=== PATIENT | female | born 1985 | race African-American/Black ===

== ENCOUNTER 2020-05-15 19:02 | Observation (INO) | payer MEDICAID ==
[~2020-05-15] VITALS: Ht 165.1 cm; Wt 91.6 kg
[~2020-05-15 19:02] MED LIST: PRE-NATAL VITAMINS
== END 2020-05-15 21:26 | disposition home or self-care (01) ==
LOC: INTOOBSV 19:02 → LDRP 19:02
PROVIDERS: ADMIT Obstetrics & Gynecology; ATTEND Obstetrics & Gynecology
DX: O62.9 Abnormality of forces of labor, unspecified (principal); Z3A.26 26 weeks gestation of pregnancy
CPT/HCPCS: 59025; 76815; 81002; G0378

== ENCOUNTER 2020-08-16 08:50 | Observation (INO) | payer MEDICAID ==
[~2020-08-16] VITALS: Ht 165.1 cm; Wt 97.5 kg
== END 2020-08-16 11:51 | disposition home or self-care (01) ==
LOC: LDRP 08:50
PROVIDERS: ADMIT Specialist; ATTEND Specialist
DX: O48.0 Post-term pregnancy (principal); Z3A.40 40 weeks gestation of pregnancy
CPT/HCPCS: 59025; 76818; 81002; G0378

== ENCOUNTER 2020-08-17 21:48 | Inpatient (IN) | payer MEDICAID ==
[~2020-08-17] VITALS: Ht 165.1 cm; Wt 97.5 kg
[2020-08-18] VITALS (9 sets, daily range): BP systolic 106–131; BP diastolic 51–78
[2020-08-18] MEDS ORDERED: WITCH HAZEL-GLYCERIN PAD TOP PRN (04:00)
[2020-08-18] MEDS ORDERED: DERMOPLAST 60ML BOTTLE TOP PRN (04:00)
[2020-08-18] MEDS ORDERED: LIDOCAINE 2%HCL (LOCAL ANESTH.) INJ 20ML MDV IJ ONE ×2 (04:00→11:00)
[2020-08-18] MEDS ORDERED: PHISODERM TOP SOLN 240ML BTL TOP PRN (04:00)
[2020-08-18 05:04] LABS: Basophils # (auto) 0 10 ^3/uL (0-0.2); Basophils % (auto) 0.1 % (0.0-2.0); Eosinophils # (auto) 0.1 10 ^3/uL (0-0.8); Eosinophils % (auto) 0.7 % (0.0-7.0); Hematocrit 37.9 % (36.0-46.0); Hemoglobin 13.1 g/dL (12.2-16.2); Lymphocytes # (auto) 1.5 10 ^3/uL (0.4-5.4); Lymphocytes % (auto) 14.4 % (10.0-50.0); Mean Corpuscular Hemoglobin 32.9 pg (28.0-32.0); Mean Corpuscular Hgb Conc. 34.4 g/dL (32.0-36.0); Mean Corpuscular Volume 95.8 fL (80.0-100.0); Monocytes # (auto) 1.1 10 ^3/uL (0-1.3); Monocytes % (auto) 10.4 % (0.0-12.0); Neutrophils # (auto) 7.9 10 ^3/uL (1.6-8.6); Neutrophils % (auto) 74.4 % (37.0-80.0); Nucleated Red Blood Cells % 0.2 %; Platelet Count (auto) 164 10^3/uL (140-450); Red Blood Cells 3.96 10^6/uL (4.0-5.20); Red Cell Distribution Width 14.5 % (11.8-14.3); White Blood Cell 10.6 10^3/uL (4.4-10.8)
[2020-08-18 05:08] LABS: Albumin 2.6 g/dL (3.4-5.0); Calcium 8.5 mg/dL (8.5-10.1); Potassium 3.7 mmol/L (3.5-5.1)
[2020-08-18 05:11] LABS: BUN/Creatinine Ratio 8.3; Bilirubin, Total 0.3 mg/dL (0.2-1.0); Total Protein 6.4 g/dL (6.4-8.2)
[2020-08-18 05:37] LABS: INR 0.99 (0.9-1.15); Partial Thromboplastin Time 25.5 sec (23.0-31.2)
[2020-08-18] MEDS ORDERED: miSOPROStol 50 MCG per PRE-CUT 1/2 TAB PO PRN (06:00)
[2020-08-18] MEDS ORDERED: CARBOPROST TROMETHAMINE 250 MCG/1ML VIAL IM ONE ×2 (07:30→16:54)
[2020-08-18] MEDS ORDERED: METHYLERGONOVINE MALEATE 0.2 MG/ML AMP IM ONE (07:30)
[2020-08-18] MEDS ORDERED: LACT. RINGERS/OXYTOCIN 20UNITS 1,000 ML IV ONE ×2 (07:30→17:15)
[2020-08-18 07:40] LABS: Urine Bacteria NONE SEEN /hpf (None Seen); Urine Blood Negative /uL (Negative); Urine Mucus FEW (None Seen); Urine Specific Gravity 1.012 (1.001-1.035); Urine WBC 5 /hpf (0 - 5)
[2020-08-18] MEDS ORDERED: LACT. RINGERS/OXYTOCIN 20UNITS 1,000 ML IV SCH (08:30)
[2020-08-18] MEDS ORDERED: fentaNYL CITRATE 100 MCG/2 ML VL IV ONE (09:15)
[2020-08-18] MEDS ORDERED: ePHEDrine SULFATE 50 MG/ML AMP IV ONE ×2 (09:15→11:00)
[2020-08-18] MEDS ORDERED: LIDOCAINE HCL 2 %PF INJ 10ML AMP IJ ONE ×2 (09:15→15:50)
[2020-08-18] MEDS ORDERED: ROPIVACAINE HCL 200 ML EPI SCH ×2 (09:15→11:00)
[2020-08-18] MEDS ORDERED: NALOXONE HCL 0.4 MG/ML VIAL IV ONE ×2 (09:15→11:00)
[2020-08-18] MEDS: LACTATED RINGER'S 1,000 ML IV SCH ×2 (10:13→19:21)
[2020-08-18] MEDS ORDERED: LACTATED RINGER'S 500 ML IV ONE (11:00)
[2020-08-18] MEDS ORDERED: LIDOCAINE W/ EPINEPHRINE 1 % INJ 30ML IJ ONE (11:00)
[2020-08-18] MEDS ORDERED: SODIUM CHLORIDE 0.9% 500 ML IV PRN (11:00)
[2020-08-18] MEDS ORDERED: ceFAZolin 1GM/50ML 50 ML IV ONE ×2 (15:30)
[2020-08-18] MEDS ORDERED: fentaNYL CITRATE 100 MCG/2 ML VL ONE (15:47)
[2020-08-18] MEDS ORDERED: MORPHINE SULF(PF) 0.5MG/ML 10ML VIAL ONE (15:47)
[2020-08-18] MEDS ORDERED: MIDAZOLAM HCL 1MG/1ML-2 ML VIAL ONE (15:48)
[2020-08-18] MEDS ORDERED: oxyTOCIN 10 UNIT/ML 10ML VIAL ONE (15:50)
[2020-08-18 16:49] LABS: Alcohol, Urine < 3.0 mg/dL (0-10); Amphetamine Screen, Urine NEGATIVE (NEGATIVE); Barbiturate Scree,Urine NEGATIVE (NEGATIVE); Benzodiazephine Screen, Urine NEGATIVE (NEGATIVE); Cannabinoid Screen, Urine NEGATIVE (NEGATIVE); Cocaine Screen, Urine NEGATIVE (NEGATIVE); Opiate Scree,Urine NEGATIVE (NEGATIVE); Phencyclidine Screen, Urine NEGATIVE (NEGATIVE)
[2020-08-18] MEDS ORDERED: LABETALOL HCL 5 MG/ML 4ML SYRINGE IV PRN (17:15)
[2020-08-18] MEDS ORDERED: MORPHINE SULFATE 4 MG/ML SYR/VIAL IV PRN (17:15)
[2020-08-18] MEDS ORDERED: GUM (CHEWING) 1 GUM CHEW CHEW ONE (17:15)
[2020-08-18] MEDS ORDERED: HYDROmorphone HCL 2 MG/ML VL IV PRN (17:15)
[2020-08-18] MEDS ORDERED: NALBUPHINE HCL 10 MG/1ml INJECTION SUBCUT ONE (17:15)
[2020-08-18] MEDS ORDERED: NALOXONE HCL 0.4 MG/ML VIAL IV PRN (17:15)
[2020-08-18] MEDS ORDERED: diphenhdrAMINE HCL 50 MG/1 ML VL IV PRN (17:15)
[2020-08-18] MEDS ORDERED: MIDAZOLAM HCL 1MG/1ML-2 ML VIAL IV PRN (17:15)
[2020-08-18] MEDS ORDERED: ONDANSETRON HCL 4 MG/2 ML VIAL IV PRN ×2 (17:15)
[2020-08-18] MEDS ORDERED: ePHEDrine SULFATE 50 MG/ML AMP IV PRN (17:15)
[2020-08-18] MEDS ORDERED: DexAMETHasone SOD PHOS 10MG/1ML VIAL INJ IV PRN (17:15)
[2020-08-18] MEDS ORDERED: ONDANSETRON HCL 4 MG/2 ML VIAL ONE (17:40)
[2020-08-18] MEDS ORDERED: HYDROmorphone HCL 2 MG/ML VL ONE (17:42)
[2020-08-18] MEDS ORDERED: ACETAMINOPHEN IV 1000 MG/100ML (10MG/ML) IV ONE (19:15)
[2020-08-18] MEDS: KETOROLAC TROMETH 30 MG/ML 1ML VIAL IV PRN (19:20)
[2020-08-18] MEDS: ceFAZolin 1GM/50ML 50 ML IV SCH (19:21)
[2020-08-18] MEDS ORDERED: RHO (D) IMMUNE GLOBULIN 300 MCG INJ IM ONE (20:15)
[2020-08-18 22:25] LABS: Basophils # (auto) 0 10 ^3/uL (0-0.2); Basophils % (auto) 0.2 % (0.0-2.0); Eosinophils # (auto) 0 10 ^3/uL (0-0.8); Eosinophils % (auto) 0.1 % (0.0-7.0); Hematocrit 32.8 % (36.0-46.0); Hemoglobin 11.1 g/dL (12.2-16.2); Lymphocytes # (auto) 1.1 10 ^3/uL (0.4-5.4); Lymphocytes % (auto) 6.1 % (10.0-50.0); Mean Corpuscular Hemoglobin 32.7 pg (28.0-32.0); Mean Corpuscular Hgb Conc. 33.8 g/dL (32.0-36.0); Mean Corpuscular Volume 96.9 fL (80.0-100.0); Monocytes # (auto) 1.1 10 ^3/uL (0-1.3); Monocytes % (auto) 6.3 % (0.0-12.0); Neutrophils # (auto) 15.1 10 ^3/uL (1.6-8.6); Neutrophils % (auto) 87.3 % (37.0-80.0); Platelet Count (auto) 148 10^3/uL (140-450); Red Blood Cells 3.39 10^6/uL (4.0-5.20); Red Cell Distribution Width 14.4 % (11.8-14.3); White Blood Cell 17.3 10^3/uL (4.4-10.8)
[2020-08-19] VITALS (11 sets, daily range): BP systolic 94–124; BP diastolic 46–63
[2020-08-19] MEDS: LACTATED RINGER'S 1,000 ML IV SCH (03:24)
[2020-08-19] MEDS: ceFAZolin 1GM/50ML 50 ML IV SCH ×2 (03:28→11:23)
[2020-08-19] MEDS: KETOROLAC TROMETH 30 MG/ML 1ML VIAL IV PRN ×2 (04:04→11:23)
[2020-08-19] MEDS ORDERED: LACTATED RINGER'S 1,000 ML IV SCH (06:45)
[2020-08-19] MEDS: FERROUS SULFATE 325 MG TAB PO SCH ×2 (10:00→22:19)
[2020-08-19] MEDS: DOCUSATE SOD 100 MG CAP PO SCH ×2 (10:00→22:19)
[2020-08-19 11:19] LABS: Basophils # (auto) 0 10 ^3/uL (0-0.2); Basophils % (auto) 0.2 % (0.0-2.0); Eosinophils # (auto) 0 10 ^3/uL (0-0.8); Lymphocytes # (auto) 0.6 10 ^3/uL (0.4-5.4); Mean Corpuscular Volume 96.6 fL (80.0-100.0); Platelet Count (auto) 138 10^3/uL (140-450)
[2020-08-19 11:21] LABS: Eosinophils % (auto) 0.2 % (0.0-7.0); Hematocrit 29.6 % (36.0-46.0); Hemoglobin 10.2 g/dL (12.2-16.2); Mean Corpuscular Hemoglobin 33.2 pg (28.0-32.0); Mean Corpuscular Hgb Conc. 34.3 g/dL (32.0-36.0); Monocytes # (auto) 0.7 10 ^3/uL (0-1.3); Monocytes % (auto) 4.6 % (0.0-12.0); Neutrophils # (auto) 14.4 10 ^3/uL (1.6-8.6); Red Blood Cells 3.07 10^6/uL (4.0-5.20); Red Cell Distribution Width 14.5 % (11.8-14.3); White Blood Cell 15.9 10^3/uL (4.4-10.8)
[2020-08-19] MEDS: SIMETHICONE 80 MG CHEWABLE TABLET PO SCH ×2 (12:00→20:14)
[2020-08-19] MEDS ORDERED: HYDROcodone-ACET 5/325MG TAB PO PRN (14:45)
[2020-08-19] MEDS: HYDROcodone-ACET 5/325MG TAB PO PRN ×2 (15:20→23:55)
[2020-08-19] MEDS: IBUPROFEN 800 MG TAB PO PRN (20:14)
[2020-08-20] MEDS: SIMETHICONE 80 MG CHEWABLE TABLET PO SCH ×5 (00:42→22:00)
[2020-08-20 03:27] VITALS: BP 110/56
[2020-08-20] MEDS: HYDROcodone-ACET 5/325MG TAB PO PRN ×3 (04:00→20:58)
[2020-08-20 04:06] LABS: RPR Non Reactive (Non Reactive)
[2020-08-20 07:30] VITALS: BP 104/52
[2020-08-20] MEDS: IBUPROFEN 800 MG TAB PO PRN ×2 (08:01→15:42)
[2020-08-20] MEDS: FERROUS SULFATE 325 MG TAB PO SCH ×2 (10:21→21:57)
[2020-08-20] MEDS: DOCUSATE SOD 100 MG CAP PO SCH ×2 (10:21→21:57)
[2020-08-20 11:30] VITALS: BP 107/60
[2020-08-20 15:30] VITALS: BP 106/55
[2020-08-20 19:10] VITALS: BP 110/63
[2020-08-20] MEDS ORDERED: BISACODYL 10 MG RECT SUPP PR ONE (22:00)
[2020-08-20 22:49] VITALS: BP 128/70
[2020-08-21] MEDS: IBUPROFEN 800 MG TAB PO PRN ×2 (00:53→10:23)
[2020-08-21] MEDS: HYDROcodone-ACET 5/325MG TAB PO PRN ×2 (02:50→07:15)
[2020-08-21 02:59] VITALS: BP 106/67
[2020-08-21] MEDS: SIMETHICONE 80 MG CHEWABLE TABLET PO SCH (05:26)
[2020-08-21 06:57] VITALS: BP 105/63
[2020-08-21] MEDS: FERROUS SULFATE 325 MG TAB PO SCH (07:15)
[2020-08-21] MEDS: DOCUSATE SOD 100 MG CAP PO SCH (07:15)
[2020-08-21 11:00] VITALS: BP 105/65
== END 2020-08-21 11:50 | disposition home or self-care (01) | DRG 540 ==
LOC: LDRP 21:48 → OBSVTOIN 08-18 03:55 → LDRP 08-18 04:02
PROVIDERS: ADMIT Obstetrics & Gynecology; ATTEND Obstetrics & Gynecology
PROC: 10D00Z1 Extraction of Products of Conception, Low, Open Approach (ICD-10-PCS; principal; 2020-08-18 16:22)
PROC: 3E0234Z Introduction of Serum, Toxoid and Vaccine into Muscle, Percutaneous Approach (ICD-10-PCS; 2020-08-19)
DX: O76 Abnormality in fetal heart rate and rhythm complicating labor and delivery (principal); O48.0 Post-term pregnancy; Z20.828 Contact with and (suspected) exposure to other viral communicable diseases; O69.89X0 Labor and delivery complicated by other cord complications, not applicable or unspecified; O26.893 Other specified pregnancy related conditions, third trimester; O99.214 Obesity complicating childbirth; E66.01 Morbid (severe) obesity due to excess calories; Z37.0 Single live birth; Z3A.40 40 weeks gestation of pregnancy; Z67.21 Type B blood, Rh negative
CPT/HCPCS: 36415; 59025; 62282; 76818; 80053; 80307; 81001; 81002; 84112; 85025; 85610; 85730; 86592; 86850; 86900; 86901; 87426; 90384; 94760; 94762; 96360; 96361; 96365; 96366; 96374; G0378; J0131; J0690; J1885; J2250; J2405; J2590

== ENCOUNTER 2020-08-26 07:37 | Inpatient (IN) | payer MEDICAID ==
[~2020-08-26] VITALS: Ht 167.6 cm; Wt 87.8 kg
[2020-08-26 09:24] LABS: Basophils # (auto) 0 10 ^3/uL (0-0.2); Basophils % (auto) 0.1 % (0.0-2.0); Eosinophils # (auto) 0.2 10 ^3/uL (0-0.8); Eosinophils % (auto) 1.1 % (0.0-7.0); Hematocrit 30.2 % (36.0-46.0); Hemoglobin 10.4 g/dL (12.2-16.2); Lymphocytes # (auto) 1.1 10 ^3/uL (0.4-5.4); Lymphocytes % (auto) 6.5 % (10.0-50.0); Mean Corpuscular Hemoglobin 32.8 pg (28.0-32.0); Mean Corpuscular Hgb Conc. 34.4 g/dL (32.0-36.0); Mean Corpuscular Volume 95.2 fL (80.0-100.0); Monocytes # (auto) 1.4 10 ^3/uL (0-1.3); Monocytes % (auto) 8.6 % (0.0-12.0); Neutrophils # (auto) 13.7 10 ^3/uL (1.6-8.6); Neutrophils % (auto) 83.7 % (37.0-80.0); Platelet Count (auto) 368 10^3/uL (140-450); Red Blood Cells 3.17 10^6/uL (4.0-5.20); Red Cell Distribution Width 14.3 % (11.8-14.3); White Blood Cell 16.4 10^3/uL (4.4-10.8)
[2020-08-26 10:12] LABS: Albumin 2.3 g/dL (3.4-5.0); Calcium 8.8 mg/dL (8.5-10.1)
[2020-08-26] MEDS ORDERED: SODIUM CHLORIDE 0.9% 1,000 ML IVB ONE (10:15)
[2020-08-26] MEDS ORDERED: ONDANSETRON HCL 4 MG/2 ML VIAL IV ONE ×4 (10:15→23:45)
[2020-08-26] MEDS ORDERED: MORPHINE SULFATE 10 MG/ML INJ 1ML SDV IV ONE (10:15)
[2020-08-26 10:18] LABS: BUN/Creatinine Ratio 8.1; Bilirubin, Total 0.4 mg/dL (0.2-1.0); Potassium 3.7 mmol/L (3.5-5.1); Total Protein 6.8 g/dL (6.4-8.2)
[2020-08-26 14:47] LABS: Urine Bacteria FEW /hpf (None Seen); Urine Blood 2+ /uL (Negative); Urine Mucus FEW (None Seen); Urine Specific Gravity 1.025 (1.001-1.035); Urine WBC 137 /hpf (0 - 5)
[2020-08-26] MEDS ORDERED: IOHEXOL 300 MG/ML 100ML BOTTLE IJ ONE (15:07)
[2020-08-26] MEDS ORDERED: OMNIPAQUE ORAL SOLN 500ml 12mg/ml PO ONE (15:07)
[2020-08-26] MEDS ORDERED: MORPHINE SULF INJ 2 MG/ML SYRINGE 1ML ONE (15:26)
[2020-08-26] MEDS ORDERED: MORPHINE SULFATE 4 MG/ML SYR/VIAL ONE ×2 (15:27→22:37)
[2020-08-26 16:35] LABS: Basophils # (auto) 0 10 ^3/uL (0-0.2); Basophils % (auto) 0.2 % (0.0-2.0); Eosinophils # (auto) 0.1 10 ^3/uL (0-0.8); Eosinophils % (auto) 0.4 % (0.0-7.0); Hematocrit 29.1 % (36.0-46.0); Hemoglobin 9.9 g/dL (12.2-16.2); Lymphocytes # (auto) 0.9 10 ^3/uL (0.4-5.4); Lymphocytes % (auto) 4.3 % (10.0-50.0); Mean Corpuscular Hemoglobin 32.6 pg (28.0-32.0); Mean Corpuscular Hgb Conc. 34.2 g/dL (32.0-36.0); Mean Corpuscular Volume 95.4 fL (80.0-100.0); Monocytes # (auto) 1.8 10 ^3/uL (0-1.3); Monocytes % (auto) 9.1 % (0.0-12.0); Platelet Count (auto) 344 10^3/uL (140-450); Red Blood Cells 3.05 10^6/uL (4.0-5.20); Red Cell Distribution Width 14.5 % (11.8-14.3); White Blood Cell 19.8 10^3/uL (4.4-10.8)
[2020-08-26 17:00] LABS: Potassium 3.6 mmol/L (3.5-5.1)
[2020-08-26 17:04] LABS: INR 1.05 (0.9-1.15); Partial Thromboplastin Time 29.2 sec (23.0-31.2)
[2020-08-26 17:07] LABS: Albumin 2.2 g/dL (3.4-5.0); BUN/Creatinine Ratio 10.6; Bilirubin, Total 0.6 mg/dL (0.2-1.0); Calcium 8.2 mg/dL (8.5-10.1); Total Protein 6.6 g/dL (6.4-8.2)
[2020-08-26] MEDS ORDERED: MORPHINE SULFATE 4 MG/ML SYR/VIAL IV ONE ×2 (20:00→22:45)
[2020-08-26] MEDS ORDERED: ONDANSETRON HCL 4 MG/2 ML VIAL ONE (22:37)
[2020-08-26] MEDS ORDERED: PIPERACILLIN-TAZOB 3.375GM 100 ML IV ONE (23:45)
[2020-08-26] MEDS ORDERED: VANCOMYCIN 1GM/250ML 250 ML IV ONE (23:45)
[2020-08-27] MEDS ORDERED: ONDANSETRON HCL 4 MG/2 ML VIAL IV PRN (01:00)
[2020-08-27] MEDS ORDERED: VANCOMYCIN PER PHARMACY 0 MG IV SCH (01:00)
[2020-08-27] MEDS: MORPHINE SULFATE 4 MG/ML SYR/VIAL IV ONE ×2 (01:30→02:53)
[2020-08-27] MEDS: D5W/SOD CHL 0.45% 1,000 ML IV SCH ×2 (02:11→09:37)
[2020-08-27] MEDS ORDERED: NITROGLYCERIN 0.4 MG SL TAB SL PRN (04:00)
[2020-08-27] MEDS ORDERED: DOCUSATE SOD 100 MG CAP PO PRN (04:00)
[2020-08-27] MEDS ORDERED: MORPHINE SULF INJ 2 MG/ML SYRINGE 1ML IV PRN (04:00)
[2020-08-27] MEDS: HYDROcodone-ACET 5/325MG TAB PO PRN ×3 (06:27→20:44)
[2020-08-27] MEDS: PIPERACILLIN-TAZOB 3.375GM 100 ML IV SCH ×2 (07:30→22:00)
[2020-08-27 09:31] LABS: Basophils # (auto) 0 10 ^3/uL (0-0.2); Basophils % (auto) 0.1 % (0.0-2.0); Eosinophils # (auto) 0 10 ^3/uL (0-0.8); Eosinophils % (auto) 0.2 % (0.0-7.0); Hematocrit 29.2 % (36.0-46.0); Hemoglobin 9.6 g/dL (12.2-16.2); Lymphocytes # (auto) 0.9 10 ^3/uL (0.4-5.4); Lymphocytes % (auto) 3.8 % (10.0-50.0); Mean Corpuscular Hemoglobin 31.4 pg (28.0-32.0); Mean Corpuscular Volume 95.1 fL (80.0-100.0); Monocytes # (auto) 1.8 10 ^3/uL (0-1.3); Monocytes % (auto) 7.7 % (0.0-12.0); Neutrophils # (auto) 20.1 10 ^3/uL (1.6-8.6); Neutrophils % (auto) 88.2 % (37.0-80.0); Platelet Count (auto) 406 10^3/uL (140-450); Red Blood Cells 3.07 10^6/uL (4.0-5.20); Red Cell Distribution Width 14.5 % (11.8-14.3); White Blood Cell 22.8 10^3/uL (4.4-10.8)
[2020-08-27] MEDS: MORPHINE SULFATE 4 MG/ML SYR/VIAL IV PRN ×2 (09:38→23:50)
[2020-08-27 09:49] LABS: Calcium 8.1 mg/dL (8.5-10.1); Potassium 3.3 mmol/L (3.5-5.1)
[2020-08-27 09:51] LABS: Bilirubin, Total 0.7 mg/dL (0.2-1.0); Total Protein 6.3 g/dL (6.4-8.2)
[2020-08-27] MEDS: FAMOTIDINE (10MG/ML) 2ML VL IV SCH (12:00)
[2020-08-27] MEDS: ENOXAPARIN SOD 40 MG/0.4 ML SYRINGE SC SCH (12:00)
[2020-08-27] MEDS: VANCOMYCIN 1GM/250ML 250 ML IV SCH ×2 (12:00→20:00)
[2020-08-27] MEDS: D5W/SOD CHL 0.45%/KCL 20MEQ 1,000 ML IV SCH (15:43)
[2020-08-27] MEDS: FERROUS SULFATE 325 MG TAB PO SCH (19:30)
[2020-08-28] MEDS: FAMOTIDINE (10MG/ML) 2ML VL IV SCH ×3 (00:01→21:21)
[2020-08-28] MEDS: metroNIDAZOLE 500MG/100ML 100 ML IV SCH ×5 (00:11→21:20)
[2020-08-28] MEDS: MORPHINE SULFATE 4 MG/ML SYR/VIAL IV PRN (05:00)
[2020-08-28 05:10] LABS: Basophils # (auto) 0 10 ^3/uL (0-0.2); Basophils % (auto) 0.2 % (0.0-2.0); Eosinophils # (auto) 0 10 ^3/uL (0-0.8); Eosinophils % (auto) 0.1 % (0.0-7.0); Hematocrit 30.8 % (36.0-46.0); Hemoglobin 10.5 g/dL (12.2-16.2); Mean Corpuscular Hemoglobin 32.3 pg (28.0-32.0); Mean Corpuscular Hgb Conc. 33.9 g/dL (32.0-36.0); Mean Corpuscular Volume 95.2 fL (80.0-100.0); Monocytes # (auto) 1.1 10 ^3/uL (0-1.3); Monocytes % (auto) 4.5 % (0.0-12.0); Neutrophils # (auto) 22.1 10 ^3/uL (1.6-8.6); Neutrophils % (auto) 91.2 % (37.0-80.0); Nucleated Red Blood Cells % 0.1 %; Platelet Count (auto) 450 10^3/uL (140-450); Red Blood Cells 3.24 10^6/uL (4.0-5.20); Red Cell Distribution Width 14.8 % (11.8-14.3); White Blood Cell 24.2 10^3/uL (4.4-10.8)
[2020-08-28] MEDS: PIPERACILLIN-TAZOB 3.375GM 100 ML IV SCH ×3 (05:15→22:00)
[2020-08-28 05:26] LABS: Calcium 8.1 mg/dL (8.5-10.1); Potassium 3.6 mmol/L (3.5-5.1)
[2020-08-28 05:29] LABS: BUN/Creatinine Ratio 6.2; Bilirubin, Total 0.6 mg/dL (0.2-1.0); Total Protein 6.5 g/dL (6.4-8.2)
[2020-08-28] MEDS: VANCOMYCIN 1GM/250ML 250 ML IV SCH ×2 (06:43→16:36)
[2020-08-28] MEDS: ENOXAPARIN SOD 40 MG/0.4 ML SYRINGE SC SCH (09:08)
[2020-08-28] MEDS: FERROUS SULFATE 325 MG TAB PO SCH ×2 (09:08→16:36)
[2020-08-28] MEDS: D5W/SOD CHL 0.45%/KCL 20MEQ 1,000 ML IV SCH ×2 (09:21)
[2020-08-28] MEDS: ACETAMINOPHEN 325 MG TAB PO PRN ×2 (09:21→16:37)
[2020-08-28] MEDS ORDERED: BISACODYL 10 MG RECT SUPP PR ONE (09:30)
[2020-08-28] MEDS ORDERED: fentaNYL CITRATE 100 MCG/2 ML VL ONE (11:28)
[2020-08-28] MEDS ORDERED: MIDAZOLAM HCL 1MG/1ML-2 ML VIAL ONE (11:28)
[2020-08-28] MEDS ORDERED: fentaNYL CITRATE 100 MCG/2 ML VL IV ONE (11:30)
[2020-08-28] MEDS ORDERED: MIDAZOLAM HCL 1MG/1ML-2 ML VIAL IV ONE (11:30)
[2020-08-28] MEDS ORDERED: FLEET ENEMA(ADULT) 135 ML PR ONE (12:30)
[2020-08-28] MEDS ORDERED: LACTULOSE 20Gm/30ML SOLN PO ONE (15:30)
[2020-08-28] MEDS ORDERED: CHOLECALCIFEROL (VITD3) 2,000 UNIT CAP PO ONE (15:30)
[2020-08-28] MEDS: LACTULOSE 20Gm/30ML SOLN PO SCH (21:21)
[2020-08-29] VITALS: BP 128/70
[2020-08-29] MEDS: ACETAMINOPHEN 325 MG TAB PO PRN (00:03)
[2020-08-29] MEDS: VANCOMYCIN 1GM/250ML 250 ML IV SCH (02:29)
[2020-08-29] MEDS: PIPERACILLIN-TAZOB 3.375GM 100 ML IV SCH (05:37)
[2020-08-29] MEDS: metroNIDAZOLE 500MG/100ML 100 ML IV SCH ×3 (05:37→21:08)
[2020-08-29 08:00] VITALS: BP 114/63
[2020-08-29 08:35] LABS: Basophils # (auto) 0 10 ^3/uL (0-0.2); Basophils % (auto) 0.1 % (0.0-2.0); Eosinophils # (auto) 0.1 10 ^3/uL (0-0.8); Eosinophils % (auto) 0.9 % (0.0-7.0); Hemoglobin 9.5 g/dL (12.2-16.2); Lymphocytes # (auto) 0.7 10 ^3/uL (0.4-5.4); Lymphocytes % (auto) 4.2 % (10.0-50.0); Mean Corpuscular Hemoglobin 32.3 pg (28.0-32.0); Mean Corpuscular Hgb Conc. 34.1 g/dL (32.0-36.0); Mean Corpuscular Volume 94.7 fL (80.0-100.0); Monocytes # (auto) 0.8 10 ^3/uL (0-1.3); Monocytes % (auto) 5.2 % (0.0-12.0); Neutrophils # (auto) 13.9 10 ^3/uL (1.6-8.6); Neutrophils % (auto) 89.6 % (37.0-80.0); Platelet Count (auto) 364 10^3/uL (140-450); Red Blood Cells 2.95 10^6/uL (4.0-5.20); Red Cell Distribution Width 14.7 % (11.8-14.3); White Blood Cell 15.5 10^3/uL (4.4-10.8)
[2020-08-29] MEDS: LACTULOSE 20Gm/30ML SOLN PO SCH (09:27)
[2020-08-29] MEDS: FERROUS SULFATE 325 MG TAB PO SCH ×2 (09:27→18:28)
[2020-08-29] MEDS: ZINC SULFATE 220mg CAP or TAB PO SCH (09:27)
[2020-08-29] MEDS: ENOXAPARIN SOD 40 MG/0.4 ML SYRINGE SC SCH (09:28)
[2020-08-29] MEDS: ASCORBIC ACID 500 MG TAB PO SCH (09:28)
[2020-08-29] MEDS: CHOLECALCIFEROL (VITD3) 2,000 UNIT CAP PO SCH (09:28)
[2020-08-29] MEDS: FAMOTIDINE (10MG/ML) 2ML VL IV SCH (09:29)
[2020-08-29] MEDS ORDERED: LACTULOSE 20Gm/30ML SOLN PO PRN (09:30)
[2020-08-29] MEDS ORDERED: cefTRIAXone 1GM/50ML D5W 50 ML IV SCH (10:00)
[2020-08-29] MEDS: FAMOTIDINE 20 MG TAB PO SCH ×2 (11:12→21:07)
[2020-08-29 16:20] VITALS: BP 153/76
[2020-08-29] MEDS: HYDROcodone-ACET 5/325MG TAB PO PRN (19:25)
[2020-08-30] VITALS: BP 98/56
[2020-08-30] MEDS: metroNIDAZOLE 500MG/100ML 100 ML IV SCH ×3 (05:47→22:06)
[2020-08-30] MEDS: HYDROcodone-ACET 5/325MG TAB PO PRN ×2 (06:00→15:55)
[2020-08-30 07:23] LABS: Basophils # (auto) 0 10 ^3/uL (0-0.2); Basophils % (auto) 0.1 % (0.0-2.0); Eosinophils # (auto) 0.2 10 ^3/uL (0-0.8); Eosinophils % (auto) 2.3 % (0.0-7.0); Hematocrit 26.6 % (36.0-46.0); Hemoglobin 9.1 g/dL (12.2-16.2); Lymphocytes # (auto) 0.7 10 ^3/uL (0.4-5.4); Mean Corpuscular Hemoglobin 32.6 pg (28.0-32.0); Mean Corpuscular Hgb Conc. 34.2 g/dL (32.0-36.0); Mean Corpuscular Volume 95.5 fL (80.0-100.0); Monocytes % (auto) 11.1 % (0.0-12.0); Neutrophils # (auto) 6.9 10 ^3/uL (1.6-8.6); Neutrophils % (auto) 78.5 % (37.0-80.0); Platelet Count (auto) 378 10^3/uL (140-450); Red Blood Cells 2.79 10^6/uL (4.0-5.20); White Blood Cell 8.8 10^3/uL (4.4-10.8)
[2020-08-30 08:00] VITALS: BP 108/62
[2020-08-30] MEDS: CHOLECALCIFEROL (VITD3) 2,000 UNIT CAP PO SCH (11:36)
[2020-08-30] MEDS: ASCORBIC ACID 500 MG TAB PO SCH (11:36)
[2020-08-30] MEDS: FERROUS SULFATE 325 MG TAB PO SCH ×2 (11:36→18:26)
[2020-08-30] MEDS: ENOXAPARIN SOD 40 MG/0.4 ML SYRINGE SC SCH (11:37)
[2020-08-30] MEDS: FAMOTIDINE 20 MG TAB PO SCH ×2 (11:37→22:05)
[2020-08-30] MEDS: ZINC SULFATE 220mg CAP or TAB PO SCH (11:37)
[2020-08-30] MEDS: AMPICILLIN INJ 1 GM in SODIUM CHL 0.9% 50 ML IV SCH ×2 (12:00→18:24)
[2020-08-30 16:00] VITALS: BP 115/68
[2020-08-30] MEDS: ACETAMINOPHEN 325 MG TAB PO PRN (16:40)
[2020-08-31] VITALS: BP 134/75
[2020-08-31] MEDS: AMPICILLIN INJ 1 GM in SODIUM CHL 0.9% 50 ML IV SCH ×5 (00:30→19:37)
[2020-08-31] MEDS: ACETAMINOPHEN 325 MG TAB PO PRN ×2 (01:48→19:07)
[2020-08-31] MEDS: HYDROcodone-ACET 5/325MG TAB PO PRN ×3 (05:55→17:10)
[2020-08-31] MEDS: metroNIDAZOLE 500MG/100ML 100 ML IV SCH ×4 (06:11→21:43)
[2020-08-31 08:00] VITALS: BP 127/69
[2020-08-31] MEDS: FAMOTIDINE 20 MG TAB PO SCH ×2 (09:17→21:43)
[2020-08-31] MEDS: ASCORBIC ACID 500 MG TAB PO SCH (09:17)
[2020-08-31] MEDS: ENOXAPARIN SOD 40 MG/0.4 ML SYRINGE SC SCH (09:18)
[2020-08-31] MEDS: ZINC SULFATE 220mg CAP or TAB PO SCH (09:18)
[2020-08-31] MEDS: FERROUS SULFATE 325 MG TAB PO SCH ×3 (09:18→19:38)
[2020-08-31] MEDS: CHOLECALCIFEROL (VITD3) 2,000 UNIT CAP PO SCH (09:18)
[2020-08-31] MEDS ORDERED: CHOL20007 PO (12:40)
[2020-08-31] MEDS ORDERED: ASCO500T11 PO (12:40)
[2020-08-31] MEDS ORDERED: AMPI500C8 PO (12:40)
[2020-08-31] MEDS ORDERED: ZINC220T6 PO (12:40)
[2020-08-31 16:00] VITALS: BP 120/69
[2020-09-01] VITALS: BP 123/71
[2020-09-01] MEDS: AMPICILLIN INJ 1 GM in SODIUM CHL 0.9% 50 ML IV SCH ×4 (05:38→18:43)
[2020-09-01] MEDS: metroNIDAZOLE 500MG/100ML 100 ML IV SCH (05:38)
[2020-09-01 08:00] VITALS: BP_SYST 127; BP_SYST 130; BP_DIAS 70; BP_DIAS 73
[2020-09-01] MEDS: FERROUS SULFATE 325 MG TAB PO SCH ×2 (08:10→18:44)
[2020-09-01] MEDS: ZINC SULFATE 220mg CAP or TAB PO SCH (10:00)
[2020-09-01] MEDS: FAMOTIDINE 20 MG TAB PO SCH ×2 (10:00→22:32)
[2020-09-01] MEDS: CHOLECALCIFEROL (VITD3) 2,000 UNIT CAP PO SCH (10:01)
[2020-09-01] MEDS: ASCORBIC ACID 500 MG TAB PO SCH (10:01)
[2020-09-01] MEDS: ENOXAPARIN SOD 40 MG/0.4 ML SYRINGE SC SCH ×2 (10:02→10:05)
[2020-09-01] MEDS: HYDROcodone-ACET 5/325MG TAB PO PRN (13:17)
[2020-09-01] MEDS: SODIUM CHLORIDE 0.9% 1,000 ML IV SCH ×2 (13:22→22:32)
[2020-09-01] MEDS ORDERED: IOHEXOL 300 MG/ML 100ML BOTTLE IJ ONE (15:03)
[2020-09-01 16:00] VITALS: BP 113/61
[2020-09-01] MEDS ORDERED: HYDR-4833 PO (16:00)
[2020-09-01 17:20] LABS: Hemoglobin 9.7 g/dL (12.2-16.2); Mean Corpuscular Volume 94.5 fL (80.0-100.0)
[2020-09-01 17:21] LABS: Hematocrit 29.3 % (36.0-46.0); Mean Corpuscular Hemoglobin 31.1 pg (28.0-32.0); Platelet Count (auto) 460 10^3/uL (140-450); Red Blood Cells 3.11 10^6/uL (4.0-5.20); Red Cell Distribution Width 15.1 % (11.8-14.3); White Blood Cell 20.2 10^3/uL (4.4-10.8)
[2020-09-01 17:50] LABS: Basophils % (manual) 0 (0.0-2.0); Blast Cells 0; Myelocytes % 0; Promyelocytes % 0; Reactive Lymphocytes 0
[2020-09-01 18:41] LABS: Band Neutrophils % (manual) 4; Eosinophils % (manual) 1 (0-7); Lymphocytes % (manual) 8 (10.0-50.0); Metamyelocytes % 1; Monocytes % (manual) 9 (0-12)
[2020-09-02] VITALS: BP 128/73
[2020-09-02] MEDS: AMPICILLIN INJ 1 GM in SODIUM CHL 0.9% 50 ML IV SCH ×3 (05:46)
[2020-09-02 08:00] VITALS: BP 129/71
[2020-09-02] MEDS: FERROUS SULFATE 325 MG TAB PO SCH ×2 (08:00→18:06)
[2020-09-02] MEDS ORDERED: ENOXAPARIN SOD 40 MG/0.4 ML SYRINGE SC ONE (10:15)
[2020-09-02] MEDS ORDERED: VANCOMYCIN PER PHARMACY 0 MG IV SCH (10:15)
[2020-09-02] MEDS: SOD CHL 0.9%/ KCL 20MEQ 1,000 ML IV SCH ×2 (10:41→20:15)
[2020-09-02] MEDS: ZINC SULFATE 220mg CAP or TAB PO SCH (10:42)
[2020-09-02] MEDS: ASCORBIC ACID 500 MG TAB PO SCH (10:42)
[2020-09-02] MEDS: CHOLECALCIFEROL (VITD3) 2,000 UNIT CAP PO SCH (10:43)
[2020-09-02] MEDS: FAMOTIDINE 20 MG TAB PO SCH ×2 (10:43→22:01)
[2020-09-02 11:26] LABS: White Blood Cell 20.5 10^3/uL (4.4-10.8)
[2020-09-02 11:33] LABS: Calcium 8.2 mg/dL (8.5-10.1); Hematocrit 29.3 % (36.0-46.0); Hemoglobin 9.7 g/dL (12.2-16.2); Mean Corpuscular Hemoglobin 31.5 pg (28.0-32.0); Mean Corpuscular Hgb Conc. 33.3 g/dL (32.0-36.0); Mean Corpuscular Volume 94.6 fL (80.0-100.0); Potassium 3.8 mmol/L (3.5-5.1); Red Blood Cells 3.09 10^6/uL (4.0-5.20); Red Cell Distribution Width 15.1 % (11.8-14.3)
[2020-09-02 11:37] LABS: BUN/Creatinine Ratio 6.1; Bilirubin, Total 0.2 mg/dL (0.2-1.0); Total Protein 6.7 g/dL (6.4-8.2)
[2020-09-02 12:15] LABS: Platelet Count (auto) 490 10^3/uL (140-450)
[2020-09-02 12:16] LABS: Basophils % (manual) 0 (0.0-2.0); Blast Cells 0; Promyelocytes % 0; Reactive Lymphocytes 0
[2020-09-02 12:18] LABS: Band Neutrophils % (manual) 8; Eosinophils % (manual) 1 (0-7); Lymphocytes % (manual) 6 (10.0-50.0); Metamyelocytes % 3; Monocytes % (manual) 7 (0-12); Myelocytes % 1
[2020-09-02] MEDS: PIPERACILLIN-TAZOB 3.375GM 100 ML IV SCH ×3 (12:25→23:35)
[2020-09-02] MEDS ORDERED: metroNIDAZOLE 500MG/100ML 100 ML IV SCH (14:00)
[2020-09-02] MEDS: metroNIDAZOLE 500MG/100ML 100 ML IV SCH ×2 (14:29→22:51)
[2020-09-02] MEDS: VANCOMYCIN 1GM/250ML 250 ML IV SCH ×2 (14:29→22:00)
[2020-09-02 16:00] VITALS: BP 114/73
[2020-09-02] MEDS: ACETAMINOPHEN 325 MG TAB PO PRN (16:08)
[2020-09-03] VITALS: BP 116/66
[2020-09-03] MEDS: VANCOMYCIN 1GM/250ML 250 ML IV SCH ×3 (05:39→21:25)
[2020-09-03] MEDS: metroNIDAZOLE 500MG/100ML 100 ML IV SCH ×3 (05:40→21:30)
[2020-09-03] MEDS: PIPERACILLIN-TAZOB 3.375GM 100 ML IV SCH ×4 (05:40→23:26)
[2020-09-03] MEDS: SOD CHL 0.9%/ KCL 20MEQ 1,000 ML IV SCH ×3 (06:15→23:25)
[2020-09-03 08:00] VITALS: BP 118/67
[2020-09-03] MEDS: FERROUS SULFATE 325 MG TAB PO SCH ×2 (08:28→17:51)
[2020-09-03] MEDS: FAMOTIDINE 20 MG TAB PO SCH ×2 (10:20→21:30)
[2020-09-03] MEDS: ASCORBIC ACID 500 MG TAB PO SCH (10:20)
[2020-09-03] MEDS: ZINC SULFATE 220mg CAP or TAB PO SCH (10:20)
[2020-09-03] MEDS: ENOXAPARIN SOD 40 MG/0.4 ML SYRINGE SC SCH (10:21)
[2020-09-03] MEDS: CHOLECALCIFEROL (VITD3) 2,000 UNIT CAP PO SCH (10:21)
[2020-09-03 12:49] LABS: Hematocrit 29.3 % (36.0-46.0); Hemoglobin 9.8 g/dL (12.2-16.2); Mean Corpuscular Hemoglobin 31.6 pg (28.0-32.0); Mean Corpuscular Hgb Conc. 33.5 g/dL (32.0-36.0); Mean Corpuscular Volume 94.4 fL (80.0-100.0); Platelet Count (auto) 520 10^3/uL (140-450); Red Cell Distribution Width 15.3 % (11.8-14.3); White Blood Cell 16.8 10^3/uL (4.4-10.8)
[2020-09-03 13:08] LABS: Basophils % (manual) 0 (0.0-2.0); Blast Cells 0; Promyelocytes % 0; Reactive Lymphocytes 0
[2020-09-03 13:26] LABS: Band Neutrophils % (manual) 7; Eosinophils % (manual) 1 (0-7); Lymphocytes % (manual) 6 (10.0-50.0); Metamyelocytes % 1; Monocytes % (manual) 6 (0-12); Myelocytes % 1
[2020-09-03 14:07] LABS: INR 1.16 (0.9-1.15); Partial Thromboplastin Time 29.6 sec (23.0-31.2)
[2020-09-03 15:59] LABS: Albumin 2.2 g/dL (3.4-5.0); Calcium 8.3 mg/dL (8.5-10.1); Potassium 3.7 mmol/L (3.5-5.1)
[2020-09-03 16:00] VITALS: BP 135/81
[2020-09-03 16:05] LABS: BUN/Creatinine Ratio 6.8; Bilirubin, Total 0.2 mg/dL (0.2-1.0); Total Protein 6.8 g/dL (6.4-8.2)
[2020-09-03] MEDS: HYDROcodone-ACET 5/325MG TAB PO PRN (18:55)
[2020-09-04] VITALS: BP 111/65
[2020-09-04] MEDS: VANCOMYCIN 1GM/250ML 250 ML IV SCH ×3 (05:28→22:02)
[2020-09-04] MEDS: metroNIDAZOLE 500MG/100ML 100 ML IV SCH ×3 (05:29→22:02)
[2020-09-04] MEDS: PIPERACILLIN-TAZOB 3.375GM 100 ML IV SCH ×4 (05:30→23:53)
[2020-09-04 08:00] VITALS: BP 110/71
[2020-09-04] MEDS: FERROUS SULFATE 325 MG TAB PO SCH ×2 (08:00→17:34)
[2020-09-04 08:28] LABS: Mean Corpuscular Hgb Conc. 33.1 g/dL (32.0-36.0); Red Blood Cells 3.24 10^6/uL (4.0-5.20); White Blood Cell 14.6 10^3/uL (4.4-10.8)
[2020-09-04 08:31] LABS: Hematocrit 30.2 % (36.0-46.0); Mean Corpuscular Volume 93.5 fL (80.0-100.0); Platelet Count (auto) 529 10^3/uL (140-450); Red Cell Distribution Width 15.1 % (11.8-14.3)
[2020-09-04 08:39] LABS: Band Neutrophils % (manual) 0; Basophils % (manual) 0 (0.0-2.0); Blast Cells 0; Eosinophils % (manual) 0 (0-7); Promyelocytes % 0; Reactive Lymphocytes 0
[2020-09-04 08:47] LABS: Albumin 2.2 g/dL (3.4-5.0); Calcium 8.5 mg/dL (8.5-10.1); Potassium 3.7 mmol/L (3.5-5.1)
[2020-09-04 08:57] LABS: BUN/Creatinine Ratio 4.2; Bilirubin, Total 0.3 mg/dL (0.2-1.0)
[2020-09-04] MEDS: ASCORBIC ACID 500 MG TAB PO SCH (09:07)
[2020-09-04] MEDS: CHOLECALCIFEROL (VITD3) 2,000 UNIT CAP PO SCH (09:07)
[2020-09-04] MEDS: FAMOTIDINE 20 MG TAB PO SCH ×2 (09:07→22:03)
[2020-09-04] MEDS: ZINC SULFATE 220mg CAP or TAB PO SCH (09:07)
[2020-09-04] MEDS: ENOXAPARIN SOD 40 MG/0.4 ML SYRINGE SC SCH (09:11)
[2020-09-04 09:14] LABS: Lymphocytes % (manual) 6 (10.0-50.0); Metamyelocytes % 3; Monocytes % (manual) 11 (0-12); Myelocytes % 2
[2020-09-04] MEDS: SOD CHL 0.9%/ KCL 20MEQ 1,000 ML IV SCH ×2 (12:15→22:12)
[2020-09-04] MEDS ORDERED: FLUMAZENIL 0.1 MG/ML INJ 10ML MDV IV ONE (14:41)
[2020-09-04] MEDS ORDERED: fentaNYL CITRATE 100 MCG/2 ML VL ONE (14:41)
[2020-09-04] MEDS ORDERED: NALOXONE HCL 0.4 MG/ML VIAL ONE (14:41)
[2020-09-04] MEDS ORDERED: MIDAZOLAM HCL 5 MG/ML-1ML VIAL ONE (14:41)
[2020-09-04] MEDS ORDERED: LIDOCAINE 2%HCL (LOCAL ANESTH.) INJ 20ML MDV ONE (14:41)
[2020-09-04] MEDS: HYDROcodone-ACET 5/325MG TAB PO PRN (15:49)
[2020-09-04 16:00] VITALS: BP 146/74
[2020-09-04 22:05] VITALS: BP 115/72
[2020-09-04] MEDS: ACETAMINOPHEN 325 MG TAB PO PRN (23:54)
[2020-09-05] VITALS: BP 134/79
[2020-09-05] MEDS: VANCOMYCIN 1GM/250ML 250 ML IV SCH (05:39)
[2020-09-05] MEDS: metroNIDAZOLE 500MG/100ML 100 ML IV SCH (06:04)
[2020-09-05 06:16] LABS: Mean Corpuscular Hemoglobin 30.6 pg (28.0-32.0); Mean Corpuscular Hgb Conc. 32.5 g/dL (32.0-36.0); Mean Corpuscular Volume 94.1 fL (80.0-100.0)
[2020-09-05 06:19] LABS: Hematocrit 30.4 % (36.0-46.0); Hemoglobin 9.9 g/dL (12.2-16.2); Platelet Count (auto) 548 10^3/uL (140-450); Red Blood Cells 3.23 10^6/uL (4.0-5.20); Red Cell Distribution Width 15.2 % (11.8-14.3); White Blood Cell 15.9 10^3/uL (4.4-10.8)
[2020-09-05 06:34] LABS: Potassium 3.6 mmol/L (3.5-5.1)
[2020-09-05 06:38] LABS: Basophils % (manual) 0 (0.0-2.0); Blast Cells 0; Metamyelocytes % 0; Myelocytes % 0; Promyelocytes % 0; Reactive Lymphocytes 0
[2020-09-05 06:40] LABS: Albumin 2.2 g/dL (3.4-5.0); BUN/Creatinine Ratio 5.3; Bilirubin, Total 0.3 mg/dL (0.2-1.0); Calcium 8.2 mg/dL (8.5-10.1); Total Protein 6.8 g/dL (6.4-8.2)
[2020-09-05] MEDS: PIPERACILLIN-TAZOB 3.375GM 100 ML IV SCH ×3 (06:42→17:35)
[2020-09-05 08:00] VITALS: BP 105/63
[2020-09-05] MEDS: FERROUS SULFATE 325 MG TAB PO SCH ×2 (08:12→17:35)
[2020-09-05] MEDS: SOD CHL 0.9%/ KCL 20MEQ 1,000 ML IV SCH ×2 (08:15→17:35)
[2020-09-05 08:58] LABS: Band Neutrophils % (manual) 5; Eosinophils % (manual) 3 (0-7); Lymphocytes % (manual) 3 (10.0-50.0); Monocytes % (manual) 7 (0-12)
[2020-09-05] MEDS: FAMOTIDINE 20 MG TAB PO SCH ×2 (09:04→21:45)
[2020-09-05] MEDS: ZINC SULFATE 220mg CAP or TAB PO SCH (09:04)
[2020-09-05] MEDS: ASCORBIC ACID 500 MG TAB PO SCH (09:04)
[2020-09-05] MEDS: CHOLECALCIFEROL (VITD3) 2,000 UNIT CAP PO SCH (09:05)
[2020-09-05] MEDS: ENOXAPARIN SOD 40 MG/0.4 ML SYRINGE SC SCH (09:06)
[2020-09-05] MEDS: LINEZOLID 600MG/300ML 300 ML IV SCH ×2 (10:37→21:45)
[2020-09-05 16:00] VITALS: BP 136/84
[2020-09-05] MEDS: METOCLOPRAMIDE HCL 5MG/ml INJ 2ml VIAL IV PRN (16:30)
[2020-09-05] MEDS: HYDROcodone-ACET 5/325MG TAB PO PRN ×2 (16:31→23:51)
[2020-09-06] VITALS: BP 128/71
[2020-09-06] MEDS: PIPERACILLIN-TAZOB 3.375GM 100 ML IV SCH ×2 (00:34→05:46)
[2020-09-06] MEDS: METOCLOPRAMIDE HCL 5MG/ml INJ 2ml VIAL IV PRN ×2 (00:35→13:02)
[2020-09-06] MEDS: SOD CHL 0.9%/ KCL 20MEQ 1,000 ML IV SCH (04:15)
[2020-09-06] MEDS: HYDROcodone-ACET 5/325MG TAB PO PRN ×2 (06:35→13:03)
[2020-09-06 07:41] LABS: Hemoglobin 10.1 g/dL (12.2-16.2); White Blood Cell 14.4 10^3/uL (4.4-10.8)
[2020-09-06 07:43] LABS: Hematocrit 30.5 % (36.0-46.0); Mean Corpuscular Hemoglobin 30.8 pg (28.0-32.0); Mean Corpuscular Volume 93.3 fL (80.0-100.0); Platelet Count (auto) 558 10^3/uL (140-450); Red Blood Cells 3.27 10^6/uL (4.0-5.20); Red Cell Distribution Width 15.4 % (11.8-14.3)
[2020-09-06 07:55] LABS: Basophils % (manual) 0 (0.0-2.0); Blast Cells 0; Eosinophils % (manual) 0 (0-7); Metamyelocytes % 0; Promyelocytes % 0; Reactive Lymphocytes 0
[2020-09-06 08:00] VITALS: BP 125/64
[2020-09-06 08:03] LABS: Potassium 3.5 mmol/L (3.5-5.1)
[2020-09-06] MEDS: FERROUS SULFATE 325 MG TAB PO SCH (08:16)
[2020-09-06] MEDS ORDERED: SOD CHL 0.45% WITH 20MEQ KCL 1,000 ML IV SCH (09:15)
[2020-09-06] MEDS ORDERED: MORPHINE SULF INJ 2 MG/ML SYRINGE 1ML IV PRN (09:15)
[2020-09-06] MEDS: ZINC SULFATE 220mg CAP or TAB PO SCH (10:40)
[2020-09-06] MEDS: FAMOTIDINE 20 MG TAB PO SCH (10:40)
[2020-09-06] MEDS: LINEZOLID 600MG/300ML 300 ML IV SCH (10:40)
[2020-09-06] MEDS: ASCORBIC ACID 500 MG TAB PO SCH (10:41)
[2020-09-06] MEDS: ENOXAPARIN SOD 40 MG/0.4 ML SYRINGE SC SCH (10:41)
[2020-09-06] MEDS: CHOLECALCIFEROL (VITD3) 2,000 UNIT CAP PO SCH (10:41)
[2020-09-06 12:18] LABS: Band Neutrophils % (manual) 29; Lymphocytes % (manual) 11 (10.0-50.0); Monocytes % (manual) 3 (0-12); Myelocytes % 5
[2020-09-07] MEDS ORDERED: cefTRIAXone 1GM/50ML D5W 50 ML IV SCH (09:00)
== END 2020-09-06 19:15 | disposition left against medical advice (07) | DRG 561 ==
LOC: ER 07:37 → TELE 08-27 03:48 → TELE-WESTW 08-28 22:11
PROVIDERS: ADMIT Nurse Practitioner Family; ATTEND Internal Medicine
PROC: 0W9F30Z Drainage of Abdominal Wall with Drainage Device, Percutaneous Approach (ICD-10-PCS; principal; 2020-08-28)
PROC: 0W9F30Z Drainage of Abdominal Wall with Drainage Device, Percutaneous Approach (ICD-10-PCS; 2020-09-04)
DX: O86.20 Urinary tract infection following delivery, unspecified (principal); U07.1 COVID-19; O90.4 Postpartum acute kidney failure; O99.215 Obesity complicating the puerperium; O25.3 Malnutrition in the puerperium; L02.211 Cutaneous abscess of abdominal wall; E43 Unspecified severe protein-calorie malnutrition; N89.8 Other specified noninflammatory disorders of vagina; D50.0 Iron deficiency anemia secondary to blood loss (chronic); E87.6 Hypokalemia; K56.7 Ileus, unspecified; N17.0 Acute kidney failure with tubular necrosis; B95.2 Enterococcus as the cause of diseases classified elsewhere; O99.63 Diseases of the digestive system complicating the puerperium; E66.9 Obesity, unspecified; Z53.29 Procedure and treatment not carried out because of patient's decision for other reasons; O98.53 Other viral diseases complicating the puerperium; O90.81 Anemia of the puerperium; Z82.49 Family history of ischemic heart disease and other diseases of the circulatory system; Z83.3 Family history of diabetes mellitus; Z98.82 Breast implant status
CPT/HCPCS: 10022; 36415; 71045; 72192; 72193; 74018; 74177; 76775; 76856; 77012; 80048; 80053; 80202; 81001; 83605; 83690; 84702; 85007; 85025; 85027; 85610; 85730; 87040; 87077; 87086; 87186; 87205; 87426; 87804; 96365; 96366; 96367; 96375; 96376; C1729; G0378; J0696; J2250; J2405; J2543; J3490